=== PATIENT | female | born 1975 | race Caucasian/White ===

== ENCOUNTER 2017-06-30 17:35 | Emergency (ER) | payer MEDICAID ==
[~2017-06-30] VITALS: Ht 165.1 cm; Wt 136.1 kg
[~2017-06-30 17:35] MED LIST: ACHD5005 PO; DOCU100C37 PO; HYDR-757 PO; IBUP-1773 PO; IBUP-1780 PO; LABE200T3 PO; MECL12.579 PO; PEDI1TAB46 PO; PNV91TAB3 PO
--- OUTSIDE RECORDS SUMMARY | 2017-06-30 17:40 | XMS REPORT | Continuity of Care Document ---
Author Author [facility] Organization [facility] Address Unknown Phone Unavailable Allergies Active Description Code Type Severity Reaction Onset Reported/Identified Relationship to Patient Clinical Status Yes No Known Drug Allergies [id number] Drug Allergy Unknown N/A 06/07/2015 Yes latex [id number] Drug Allergy Moderate HIVES, SWELLING 03/22/2016 Medications There is no data. Problems Date Dx Coded Attending Type Code Diagnosis Diagnosed By 04/04/2015 Ot 611.72 04/04/2015 Ot 793.89 04/04/2015 PAVEL SANTILLAN ANIMAL CARE WORKER Ot 611.89 04/04/2015 PAVEL SANTILLAN ANIMAL CARE WORKER Ot V67.9 04/04/2015 PAVEL SANTILLAN ANIMAL CARE WORKER Ot 793.89 04/04/2015 PAVEL SANTILLAN ANIMAL CARE WORKER Ot V16.3 06/07/2015 GORDON SAUCEDO TEST WORKER Ot R10.31 RIGHT LOWER QUADRANT PAIN 06/07/2015 GORDON SAUCEDO TEST WORKER Ot R31.2 OTHER MICROSCOPIC HEMATURIA 06/07/2015 GORDON SAUCEDO TEST WORKER Ot Z87.442 PERSONAL HISTORY OF URINARY CALCULI 06/07/2015 Ot 611.72 06/07/2015 Ot 793.89 06/07/2015 PAVEL SANTILLAN ANIMAL CARE WORKER Ot 611.89 06/07/2015 PAVEL SANTILLAN ANIMAL CARE WORKER Ot V67.9 06/07/2015 PAVEL SANTILLAN ANIMAL CARE WORKER Ot 793.89 06/07/2015 PAVEL SANTILLAN ANIMAL CARE WORKER Ot V16.3 06/07/2015 PAVEL SANTILLAN ANIMAL CARE WORKER Ot Z12.31 06/07/2015 PAVEL SANTILLAN ANIMAL CARE WORKER Ot Z80.3 08/22/2015 RADHIKA SHARMA TEST WORKER Ot Z34.81 08/22/2015 RADHIKA SHARMA TEST WORKER Ot Z36 09/20/2015 Ot 611.72 LUMP OR MASS IN BREAST 09/20/2015 Ot 793.89 OTH (ABN) FINDINGS ON RADIOLOGICAL EXAMI 09/20/2015 TYRELLPAVEL HERRERA ANIMAL CARE WORKER Ot 611.89 OTHER SPECIFIED DISORDERS OF BREAST 09/20/2015 TYRELLPAVEL HERRERA ANIMAL CARE WORKER Ot V67.9 FOLLOW-UP EXAM NOS 09/20/2015 TYRELLPAVEL HERRERA ANIMAL CARE WORKER Ot 793.89 OTH (ABN) FINDINGS ON RADIOLOGICAL EXAMI 09/20/2015 PAVEL SANTILLAN ANIMAL CARE WORKER Ot V16.3 FAMILY HX-BREAST MALIG 09/20/2015 PAVEL SANTILLAN ANIMAL CARE WORKER Ot Z12.31 ENCNTR SCREEN MAMMOGRAM FOR MALIGNANT NE 09/20/2015 PAVEL SANTILLAN ANIMAL CARE WORKER Ot Z80.3 FAMILY HISTORY OF MALIGNANT NEOPLASM OF 09/20/2015 RADHIKA SHARMA TEST WORKER Ot Z34.81 ENCOUNTER FOR SUPRVSN OF NORMAL PREGNANC 09/20/2015 RADHIKA SHARMA TEST WORKER Ot Z36 ENCOUNTER FOR SCREENING OF MOT 09/21/2015 Ot 611.72 LUMP OR MASS IN BREAST 09/21/2015 Ot 793.89 OTH (ABN) FINDINGS ON RADIOLOGICAL EXAMI 09/21/2015 TYRELLPAVEL HERRERA ANIMAL CARE WORKER Ot 611.89 OTHER SPECIFIED DISORDERS OF BREAST 09/21/2015 TYRELLPAVEL HERRERA ANIMAL CARE WORKER Ot V67.9 FOLLOW-UP EXAM NOS 09/21/2015 TYRELLPAVEL HERRERA ANIMAL CARE WORKER Ot 793.89 OTH (ABN) FINDINGS ON RADIOLOGICAL EXAMI 09/21/2015 PAVEL SANTILLAN ANIMAL CARE WORKER Ot V16.3 FAMILY HX-BREAST MALIG 09/21/2015 PAVEL SANTILLAN ANIMAL CARE WORKER Ot Z12.31 ENCNTR SCREEN MAMMOGRAM FOR MALIGNANT NE 09/21/2015 PAVEL SANTILLAN ANIMAL CARE WORKER Ot Z80.3 FAMILY HISTORY OF MALIGNANT NEOPLASM OF 09/21/2015 RADHIKA SHARMA TEST WORKER Ot Z34.81 ENCOUNTER FOR SUPRVSN OF NORMAL PREGNANC 09/21/2015 RADHIKA SHARMA TEST WORKER Ot Z36 ENCOUNTER FOR SCREENING OF MOT 09/22/2015 WHIT ORELLANA MD Ot Z34.81 ENCOUNTER FOR SUPRVSN OF NORMAL PREGNANC 10/03/2015 WHIT ORELLANA MD Ot Z34.81 ENCOUNTER FOR SUPRVSN OF NORMAL PREGNANC 10/07/2015 RADHIKA SHARMA TEST WORKER Ot Z34.81 ENCOUNTER FOR SUPRVSN OF NORMAL PREGNANC 10/07/2015 RADHIKA SHARMA TEST WORKER Ot Z36 ENCOUNTER FOR SCREENING OF MOT 10/16/2015 RADHIKA SHARMA TEST WORKER Ot Z34.81 ENCOUNTER FOR SUPRVSN OF NORMAL PREGNANC 10/16/2015 RADHIKA SHARMA TEST WORKER Ot Z36 ENCOUNTER FOR SCREENING OF MOT 11/29/2015 Ot 611.72 LUMP OR MASS IN BREAST 11/29/2015 Ot 793.89 OTH (ABN) FINDINGS ON RADIOLOGICAL EXAMI 11/29/2015 PAVEL SANTILLAN ANIMAL CARE WORKER Ot 611.89 OTHER SPECIFIED DISORDERS OF BREAST 11/29/2015 PAVEL SANTILLAN ANIMAL CARE WORKER Ot V67.9 FOLLOW-UP EXAM NOS 11/29/2015 PAVEL SANTILLAN ANIMAL CARE WORKER Ot 793.89 OTH (ABN) FINDINGS ON RADIOLOGICAL EXAMI 11/29/2015 PAVEL SANTILLAN ANIMAL CARE WORKER Ot V16.3 FAMILY HX-BREAST MALIG 11/29/2015 PAVEL SANTILLAN ANIMAL CARE WORKER Ot Z12.31 ENCNTR SCREEN MAMMOGRAM FOR MALIGNANT NE 11/29/2015 PAVEL SANTILLAN ANIMAL CARE WORKER Ot Z80.3 FAMILY HISTORY OF MALIGNANT NEOPLASM OF 11/29/2015 RADHIKA SHARMA TEST WORKER Ot Z34.81 ENCOUNTER FOR SUPRVSN OF NORMAL PREGNANC 11/29/2015 RADHIKA SHARMA TEST WORKER Ot Z36 ENCOUNTER FOR SCREENING OF MOT 11/29/2015 WHIT ORELLANA MD Ot Z34.81 ENCOUNTER FOR SUPRVSN OF NORMAL PREGNANC 12/01/2015 WHIT ORELLANA MD Ot Z34.82 ENCOUNTER FOR SUPRVSN OF NORMAL PREGNANC 12/11/2015 WHIT ORELLANA MD Ot Z34.82 ENCOUNTER FOR SUPRVSN OF NORMAL PREGNANC 01/03/2016 WHIT ORELLANA MD Ot K52.9 NONINFECTIVE GASTROENTERITIS AND COLITIS 01/03/2016 WHIT ORELLANA MD Ot O36.8190 DECREASED MOVEMENTS, UNSP TRIMESTE 01/03/2016 WHIT ORELLANA MD Ot O99.63 DISEASES OF THE DIGESTIVE SYSTEM COMPLIC 01/03/2016 WHIT ORELLANA MD, Ot Z3A.28 28 WEEKS GESTATION OF 01/08/2016 WHIT ORELLANA MD Ot K52.9 NONINFECTIVE GASTROENTERITIS AND COLITIS 01/08/2016 WHIT ORELLANA MD, Ot O36.8190 DECREASED MOVEMENTS, UNSP TRIMESTE 01/08/2016 WHIT ORELLANA MD, Ot O99.63 DISEASES OF THE DIGESTIVE SYSTEM COMPLIC 01/08/2016 WHIT ORELLANA MD, Ot Z3A.28 28 WEEKS GESTATION OF 01/18/2016 Ot 611.72 LUMP OR MASS IN BREAST 01/18/2016 Ot 793.89 OTH (ABN) FINDINGS ON RADIOLOGICAL EXAMI 01/18/2016 PAVEL SANTILLAN ANIMAL CARE WORKER Ot 611.89 OTHER SPECIFIED DISORDERS OF BREAST 01/18/2016 PAVEL SANTILLAN ANIMAL CARE WORKER Ot V67.9 FOLLOW-UP EXAM NOS 01/18/2016 PAVEL SANTILLAN ANIMAL CARE WORKER Ot 793.89 OTH (ABN) FINDINGS ON RADIOLOGICAL EXAMI 01/18/2016 PAVEL SANTILLAN ANIMAL CARE WORKER Ot V16.3 FAMILY HX-BREAST MALIG 01/18/2016 PAVEL SANTILLANP Ot Z12.31 ENCNTR SCREEN MAMMOGRAM FOR MALIGNANT NE 01/18/2016 PAVEL SANTILLAN ANIMAL CARE WORKER Ot Z80.3 FAMILY HISTORY OF MALIGNANT NEOPLASM OF 01/18/2016 RADHIKA SHARMA APRN Ot Z34.81 ENCOUNTER FOR SUPRVSN OF NORMAL PREGNANC 01/18/2016 RADHIKA SHARMA APRN Ot Z36 ENCOUNTER FOR SCREENING OF MOT 01/18/2016 WHIT ORELLANA MD Ot Z34.81 ENCOUNTER FOR SUPRVSN OF NORMAL PREGNANC 01/18/2016 WHIT ORELLANA MD Ot Z34.82 ENCOUNTER FOR SUPRVSN OF NORMAL PREGNANC 01/22/2016 WHIT ORELLANA MD Ot Z34.83 ENCOUNTER FOR SUPRVSN OF NORMAL PREGNANC 01/22/2016 WHIT ORELLANA MD, Ot Z36 ENCOUNTER FOR SCREENING OF MOT 01/22/2016 WHIT ORELLANA MD, Ot Z3A.28 28 WEEKS GESTATION OF 01/31/2016 Ot 611.72 LUMP OR MASS IN BREAST 01/31/2016 Ot 793.89 OTH (ABN) FINDINGS ON RADIOLOGICAL EXAMI 01/31/2016 PAVEL SANTILLAN ANIMAL CARE WORKER Ot 611.89 OTHER SPECIFIED DISORDERS OF BREAST 01/31/2016 PAVEL SANTILLAN ANIMAL CARE WORKER Ot V67.9 FOLLOW-UP EXAM NOS 01/31/2016 PAVEL SANTILLAN ANIMAL CARE WORKER Ot 793.89 OTH (ABN) FINDINGS ON RADIOLOGICAL EXAMI 01/31/2016 PAVEL SANTILLAN ANIMAL CARE WORKER Ot V16.3 FAMILY HX-BREAST MALIG 01/31/2016 PAVEL SANTILLAN ANIMAL CARE WORKER Ot Z12.31 ENCNTR SCREEN MAMMOGRAM FOR MALIGNANT NE 01/31/2016 PAVEL SANTILLAN ANIMAL CARE WORKER Ot Z80.3 FAMILY HISTORY OF MALIGNANT NEOPLASM OF 01/31/2016 RADHIKA SHARMA APRN Ot Z34.81 ENCOUNTER FOR SUPRVSN OF NORMAL PREGNANC 01/31/2016 RADHIKA SHARMA APRN Ot Z36 ENCOUNTER FOR SCREENING OF MOT 01/31/2016 WHIT ORELLANA MD Ot Z34.81 ENCOUNTER FOR SUPRVSN OF NORMAL PREGNANC 01/31/2016 WHIT ORELLANA MD Ot Z34.82 ENCOUNTER FOR SUPRVSN OF NORMAL PREGNANC 01/31/2016 WHIT ORELLANA MD, Ot Z34.83 ENCOUNTER FOR SUPRVSN OF NORMAL PREGNANC 01/31/2016 WHIT ORELLANA MD Ot Z36 ENCOUNTER FOR SCREENING OF MOT 01/31/2016 WHIT ORELLANA MD, Ot Z3A.28 28 WEEKS GESTATION OF 02/13/2016 WHIT ORELLANA MD, Ot Z34.83 ENCOUNTER FOR SUPRVSN OF NORMAL PREGNANC 02/13/2016 WHIT ORELLANA MD, Ot Z36 ENCOUNTER FOR SCREENING OF MOT 02/13/2016 WHIT ORELLANA MD, Ot Z3A.28 28 WEEKS GESTATION OF 03/22/2016 Ot 611.72 LUMP OR MASS IN BREAST 03/22/2016 Ot 793.89 OTH (ABN) FINDINGS ON RADIOLOGICAL EXAMI 03/22/2016 PAVEL SANTILLAN ANIMAL CARE WORKER Ot 611.89 OTHER SPECIFIED DISORDERS OF BREAST 03/22/2016 PAVEL SANTILLANP Ot V67.9 FOLLOW-UP EXAM NOS 03/22/2016 PAVEL SANTILLANP Ot 793.89 OTH (ABN) FINDINGS ON RADIOLOGICAL EXAMI 03/22/2016 PAVEL SANTILLAN ANIMAL CARE WORKER Ot V16.3 FAMILY HX-BREAST MALIG 03/22/2016 PAVEL SANTILLANP Ot Z12.31 ENCNTR SCREEN MAMMOGRAM FOR MALIGNANT NE 03/22/2016 PAVEL SANTILLAN ANIMAL CARE WORKER Ot Z80.3 FAMILY HISTORY OF MALIGNANT NEOPLASM OF 03/22/2016 RADHIKA SHARMA TEST WORKER Ot Z34.81 ENCOUNTER FOR SUPRVSN OF NORMAL PREGNANC 03/22/2016 RADHIKA SHARMA TEST WORKER Ot Z36 ENCOUNTER FOR SCREENING OF MOT 03/22/2016 WHIT ORELLANA MD Ot Z34.81 ENCOUNTER FOR SUPRVSN OF NORMAL PREGNANC 03/22/2016 WHIT ORELLANA MD Ot Z34.82 ENCOUNTER FOR SUPRVSN OF NORMAL PREGNANC 03/22/2016 WHIT ORELLANA MD Ot Z34.83 ENCOUNTER FOR SUPRVSN OF NORMAL PREGNANC 03/22/2016 WHIT ORELLANA MD Ot Z36 ENCOUNTER FOR SCREENING OF MOT 03/22/2016 WHIT ORELLANA MD Ot Z3A.28 28 WEEKS GESTATION OF 03/22/2016 Ot 611.72 LUMP OR MASS IN BREAST 03/22/2016 Ot 793.89 OTH (ABN) FINDINGS ON RADIOLOGICAL EXAMI 03/22/2016 PAVEL SANTILLAN ANIMAL CARE WORKER Ot 611.89 OTHER SPECIFIED DISORDERS OF BREAST 03/22/2016 PAVEL SANTILLANP Ot V67.9 FOLLOW-UP EXAM NOS 03/22/2016 PAVEL SANTILLANP Ot 793.89 OTH (ABN) FINDINGS ON RADIOLOGICAL EXAMI 03/22/2016 PAVEL SANTILLAN ANIMAL CARE WORKER Ot V16.3 FAMILY HX-BREAST MALIG 03/22/2016 PAVEL SANTILLAN ANIMAL CARE WORKER Ot Z12.31 ENCNTR SCREEN MAMMOGRAM FOR MALIGNANT NE 03/22/2016 PAVEL SANTILLAN Ot Z80.3 FAMILY HISTORY OF MALIGNANT NEOPLASM OF 03/22/2016 RADHIKA SHARMA APRN Ot Z34.81 ENCOUNTER FOR SUPRVSN OF NORMAL PREGNANC 03/22/2016 RADHIKA SHARMA APRN Ot Z36 ENCOUNTER FOR SCREENING OF MOT 03/22/2016 WHIT ORELALNA MD, Ot Z34.81 ENCOUNTER FOR SUPRVSN OF NORMAL PREGNANC 03/22/2016 WHIT ORELLANA MD, Ot Z34.82 ENCOUNTER FOR SUPRVSN OF NORMAL PREGNANC 03/22/2016 WHIT ORELLANA MD, Ot Z34.83 ENCOUNTER FOR SUPRVSN OF NORMAL PREGNANC 03/22/2016 WHIT ORELLANA MD, Ot Z36 ENCOUNTER FOR SCREENING OF MOT 03/22/2016 WHIT ORELLANA MD, Ot Z3A.28 28 WEEKS GESTATION OF 03/25/2016 EDWIGE ROJO DO, Ot O34.219 MATERNAL CARE FOR UNSP TYPE SCAR FROM VA 03/25/2016 EDWIGE ROJO DO, Ot Z01.818 ENCOUNTER FOR OTHER PREPROCEDURAL EXAMIN 03/25/2016 EDWIGE ROJO DO, Ot Z11.2 ENCOUNTER FOR SCREENING FOR OTHER BACTER 03/25/2016 EDWIGE ROJO DO, Ot Z3A.00 WEEKS OF GESTATION OF NOT SPEC 03/30/2016 EDWIGE ROJO DO, Ot O09.523 SUPERVISION OF ELDERLY MULTIGRAVIDA, THI 03/30/2016 EDWIGE ROJO DO, Ot O13.4 GESTATNL HTN WITHOUT SIGNIFICANT PROTEIN 03/30/2016 EDWIGE ROJO DO, Ot O34.211 MATERN CARE FOR LOW TRANSVERSE SCAR FROM 03/30/2016 EDWIGE ROJO DO, Ot Z23 ENCOUNTER FOR IMMUNIZATION 03/30/2016 EDWIGE ROJO DO, Ot Z37.0 SINGLE LIVE 03/30/2016 EDWIGE ROJO DO, Ot Z3A.39 39 WEEKS GESTATION OF Procedures Code Description Performed By Performed On [id number] EXTRACTION OF POC, LOW CERVICAL, OPEN AP 03/28/2016 Results Test Result Range Methicillin resistant Staphylococcus aureus (MRSA) screening culture - 11:30 Methicillin resistant Staphylococcus aureus (MRSA) screening culture NEG NRG Complete blood count (CBC) with automated white blood cell (WBC) differential - 03/28/16 06:10 Blood leukocytes automated count (number/volume) 8.6 10*3/uL 4.3-11.0 Blood erythrocytes automated count (number/volume) 4.25 10*6/uL 4.35-5.85 Venous blood hemoglobin measurement (mass/volume) 12.9 g/dL 11.5-16.0 Blood hematocrit (volume fraction) 39 % 35-52 Automated erythrocyte mean corpuscular volume 91 [foz_us] 80-99 Automated erythrocyte mean corpuscular hemoglobin (mass per erythrocyte) 30 pg 25-34 Automated erythrocyte mean corpuscular hemoglobin concentration measurement ( mass/volume) 33 g/dL 32-36 Automated erythrocyte distribution width ratio 16.5 % 10.0-14.5 Automated blood platelet count (count/volume) 167 10*3/uL 130-400 Automated blood platelet mean volume measurement 11.9 [foz_us] 7.4-10.4 Automated blood neutrophils/100 leukocytes 64 % 42-75 Automated blood lymphocytes/100 leukocytes 26 % 12-44 Blood monocytes/100 leukocytes 8 % 0-12 Automated blood eosinophils/100 leukocytes 2 % 0-10 Automated blood basophils/100 leukocytes 0 % 0-10 Blood neutrophils automated count (number/volume) 5.5 10*3 1.8-7.8 Blood lymphocytes automated count (number/volume) 2.2 10*3 1.0-4.0 Blood monocytes automated count (number/volume) 0.7 10*3 0.0-1.0 Automated eosinophil count 0.2 10*3/uL 0.0-0.3 Automated blood basophil count (count/volume) 0.0 10*3/uL 0.0-0.1 Blood type T Indirect antibody screen panel - 03/28/16 06:10 ABO+Rh group OP NRG Transfusion band number [id number] [facility] Blood group antibody screen NEGATIVE [facility] Complete blood count (CBC) with automated white blood cell (WBC) differential - 03/29/16 05:53 Blood leukocytes automated count (number/volume) 10.9 10*3/uL 4.3-11.0 Blood erythrocytes automated count (number/volume) 3.67 10*6/uL 4.35-5.85 Venous blood hemoglobin measurement (mass/volume) 11.2 g/dL 11.5-16.0 Blood hematocrit (volume fraction) 34 % 35-52 Automated erythrocyte mean corpuscular volume 92 [foz_us] 80-99 Automated erythrocyte mean corpuscular hemoglobin (mass per erythrocyte) 31 pg 25-34 Automated erythrocyte mean corpuscular hemoglobin concentration measurement ( mass/volume) 33 g/dL 32-36 Automated erythrocyte distribution width ratio 16.4 % 10.0-14.5 Automated blood platelet count (count/volume) 135 10*3/uL 130-400 Automated blood platelet mean volume measurement 11.6 [foz_us] 7.4-10.4 Automated blood neutrophils/100 leukocytes 65 % 42-75 Automated blood lymphocytes/100 leukocytes 27 % 12-44 Blood monocytes/100 leukocytes 8 % 0-12 Automated blood eosinophils/100 leukocytes 1 % 0-10 Automated blood basophils/100 leukocytes 0 % 0-10 Blood neutrophils automated count (number/volume) 7.1 10*3 1.8-7.8 Blood lymphocytes automated count (number/volume) 2.9 10*3 1.0-4.0 Blood monocytes automated count (number/volume) 0.8 10*3 0.0-1.0 Automated eosinophil count 0.1 10*3/uL 0.0-0.3 Automated blood basophil count (count/volume) 0.0 10*3/uL 0.0-0.1 Encounters ACCT No. Visit Date/Time Discharge Status Pt. Type Provider Facility Loc./Unit Complaint [id number] 03/28/2016 05:53:00 03/30/2016 10:10:00 DIS Inpatient EDWIGE ROJO DO S [facility] WS PREVIOUS SECTION [id number] 03/22/2016 10:50:00 03/22/2016 23:59:59 CLS Outpatient EDWIGE ROJO DO [facility] PREOP PREVIOUS SECTION [id number] 01/18/2016 13:12:00 01/18/2016 23:59:59 CLS Outpatient WHIT ORELLANA MD [facility] RAD 28 WEEKS OF GESTATION OF [id number] 01/03/2016 09:08:00 01/03/2016 10:30:00 DIS Outpatient WHIT ORELLANA MD [facility] WSo NAUSEA,VOMITTING, DECREASED MOVEMENT [id number] 11/29/2015 14:28:00 11/29/2015 23:59:59 CLS Outpatient WHIT ORELLANA MD [facility] RAD PRE-PREM CARE, SUBSEQUENT 2ND TRIMESTER [id number] 09/20/2015 14:49:00 09/20/2015 23:59:59 CLS Outpatient WHIT ORELLANA MD [facility] RAD UNABLE TO HEAR HEART TONES [id number] 08/22/2015 15:12:00 08/22/2015 23:59:59 CLS Outpatient RADHIKA SHARMA APRN [facility] RAD CARE [id number] 06/07/2015 10:59:00 06/07/2015 13:35:00 DIS Emergency GORDON SAUCEDO APRN [facility] ER LOWER RIGHT SIDE ABD PAIN [id number] 04/04/2015 11:13:00 04/04/2015 23:59:59 CLS Outpatient PAVEL SANTILLAN ANIMAL CARE WORKER [facility] RAD SCREENING [id number] 04/05/2014 14:35:00 04/05/2014 23:59:59 CLS Outpatient [id number] 01/17/2014 08:15:00 01/17/2014 23:59:59 CLS Outpatient PAVEL SANTILLANP [facility] RAD BILATERAL BREAST CALCIFACTIONS [id number] 12/08/2012 13:39:00 12/08/2012 23:59:59 CLS Outpatient PAVEL SANTILLAN ANIMAL CARE WORKER [facility] RAD SIX MONTH FOLLOW-UP [id number] 06/30/2017 17:36:00 ACT Emergency KEITH TORRES DO [facility] ER FLU SYMPTOMS [id number] 05/13/2012 13:02:00 Document Registration
--- NOTE | 2017-06-30 19:13 | ED Cough/URI ---
General Chief Complaint: Cough/Cold/Flu Symptoms Stated Complaint: FLU SYMPTOMS Nursing Triage Note: pt reports cough/sore throat/ low grade fever since friday. Source: patient Exam Limitations: no limitations History of Present Illness Date Seen by Provider: Jun 30, 2017 Time Seen by Provider: 18:45 Initial Comments Here with report of cough, sore throat and low-grade fever for the last 5 days although is getting better now. Patient has child with similar. Denies nausea or vomiting. Denies breathing problems or weakness. Timing/Duration: changing over time Severity/Quality: moderate, dry cough Associated Symptoms: cough, fever/chills, nasal congestion, nasal drainage, sore throat Allergies and Home Medications Allergies Coded Allergies: latex (Verified Allergy, Intermediate, HIVES, SWELLING, 03/22/16) Home Medications Docusate Sodium 100 Mg Capsule, 100 MG PO BID PRN for CONSTIPATION, #40 Prescribed by: EDWIGE ROJO on 03/29/16 0842 Hydrocodone Bit/Acetaminophen 1 Each Tablet, 1-2 TAB PO Q4H PRN for PAIN, #50 Prescribed by: EDWIGE ROJO on 03/29/16 0842 Ibuprofen 600 Mg Tablet, 600 MG PO Q6H, #80 Prescribed by: EDWIGE ROJO on 03/29/16 0842 Labetalol HCl 200 Mg Tablet, 200 MG PO BID, #60 Prescribed by: EDWIGE ROJO on 03/30/16 0857 Meclizine HCl 12.5 Mg Tablet, 12.5 MG PO PRN, (Reported) Pediatric Multivit Comb No.76 1 Each Tab.chew, 1 EACH PO DAILY, (Reported) Constitutional: see HPI, fever, No weakness EENTM: nose congestion, nose pain, throat pain Respiratory: cough, No short of breath Cardiovascular: no symptoms reported Gastrointestinal: no symptoms reported Genitourinary: no symptoms reported Musculoskeletal: no symptoms reported Skin: no symptoms reported All Other Systems Reviewed Negative Unless Noted: Yes Past Hasmmtn-Fqzrqg-Jennih Hx Patient Social History Alcohol Use: Denies Use Recreational Drug Use: No Smoking Status: Former Smoker Type Used: Cigarettes Former Smoker, Quit: Jun 22, 2015 Recent Foreign Travel: No Contact w/Someone Who Travel: No Recent Infectious Disease Expo: No Recent Hopitalizations: No Immunizations Up To Date Tetanus Booster (TDap): Less than 5yrs Date of Influenza Vaccine: Jan 25, 2016 Seasonal Allergies Seasonal Allergies: Yes Surgeries History of Surgeries: Yes (breast surgery, lumpectomy) Surgeries: Section Respiratory History of Respiratory Disorde: No Cardiovascular History of Cardiac Disorders: Yes (GESTATIONAL HPT) Cardiac Disorders: Hypertension Neurological History of Neurological Disord: No Reproductive System Hx Reproductive Disorders: No Sexually Transmitted Disease: No HIV/AIDS: No Female Reproductive Disorders: Denies Genitourinary Genitourinary Disorders: Kidney Stones Gastrointestinal History of Gastrointestinal Di: Yes Gastrointestinal Disorders: Gastroesophageal Reflux Musculoskeletal History of Musculoskeletal Dis: No Endocrine History of Endocrine Disorders: No HEENT Loss of Vision: Bilateral Hearing Impairment: Denies Cancer History of Cancer: Yes Cancer: Breast Psychosocial History of Psychiatric Problem: Yes Behavioral Health Disorders: Depression Integumentary History of Skin or Integumenta: No Blood Transfusions History of Blood Disorders: No Adverse Reaction to a Blood Tr: No (N/A) Reviewed Nursing Assessment Reviewed/Agree w Nursing PMH: Yes Family Medical History Significant Family History: No Pertinent Family Hx Family Medial History: Alcoholism 19 FATHER Hypertension 19 FATHER Physical Exam Vital Signs Vital Sign - Last 12Hours 06/30/17 18:23 Temp 98.2 Pulse 106 Resp 18 B/P (MAP) 156/80 (105) Pulse Ox 95 Capillary Refill : Less Than 3 Seconds General Appearance: WD/WN, no apparent distress HEENT: PERRL/EOMI, pharyngeal erythema, other (bilateral nasal congestion with clear rhinorrhea and moderate erythema) Neck: full range of motion, supple Respiratory: lungs clear, normal breath sounds Cardiovascular: regular rate, rhythm Gastrointestinal: non tender, soft Neurologic/Psychiatric: alert, oriented x 3 Skin: normal color, warm/dry Progress/Results/Core Measures Suspected Sepsis Recent Fever Within 48 Hours: Yes Infection Criteria Present: None New/Unexplained Altered Menta: No Sepsis Screen: No Definite Risk Sepsis Diagnosis: SIRS Temperature:98.2 Pulse: 106 Respiratory Rate: 18 Blood Pressure 156 /80 Mean: 105 Results/Orders Lab Results Laboratory Tests Test 06/30/17 18:41 Range/Units Group A Streptococcus Screen NEGATIVE NEGATIVE Micro Results Microbiology 06/30/17 Influenza Types A,B Antigen (PARISH) - Final, Complete My Orders Orders - ALEK ROBLES MD Rapid Strep A Screen (06/30/17 18:41) Vital Signs/I&O Vital Sign - Last 12Hours 06/30/17 18:23 Temp 98.2 Pulse 106 Resp 18 B/P (MAP) 156/80 (105) Pulse Ox 95 Capillary Refill : Less Than 3 Seconds Blood Pressure Mean: 105 Progress Note : Progress Note Seen and evaluated. Influenza and rapid strep ordered. Both were negative. Patient is likely on the improving side of upper respiratory infection this was discussed with the patient. No further therapy at this time other than supportive care. Discharged home with return precautions. Patient verbalize understanding of instructions and agreement with plan. Departure Impression Impression: Primary Impression: Upper respiratory infection Qualified Codes: J06.9 - Acute upper respiratory infection, unspecified Disposition: HOME, SELF-CARE Condition: Stable Departure-Patient Inst. Decision time for Depature: 20:03 Referrals: [facility] ([place]/Family) Primary Care Physician Patient Instructions: Viral Upper Respiratory Infection, Adult (DC) Add. Discharge Instructions: All discharge instructions reviewed with patient and/or family. Voiced understanding. You may take ibuprofen 800 mg and/or Tylenol 1000 mg as needed for fever or pain control alternating every 8 hours. Drink plenty of fluids. Follow-up with your Dr. in a few days for recheck. You may use Afrin nasal spray or the generic, 12 hour relief, 2 sprays to each nostril twice daily for 3 days only and then stop. Do not use more than 3 days. Return for worse pain, fever, vomiting, weakness, breathing problems or other concerns as needed. ALEK ROBLES MD Jun 30, 2017 19:13
[2017-06-30 20:50] VITALS: BP 152/72
== END 2017-06-30 20:50 | disposition home or self-care (01) ==
LOC: EDUNIT# 17:35 → ER 17:36
DX: J06.9 Acute upper respiratory infection, unspecified (principal); F32.9 Major depressive disorder, single episode, unspecified; K21.9 Gastro-esophageal reflux disease without esophagitis; I10 Essential (primary) hypertension; Z87.59 Personal history of other complications of pregnancy, childbirth and the puerperium; Z87.442 Personal history of urinary calculi; Z85.3 Personal history of malignant neoplasm of breast; Z87.891 Personal history of nicotine dependence; Z91.040 Latex allergy status
CPT/HCPCS: 87430; 87804; 99282

== ENCOUNTER 2019-04-06 12:56 | Emergency (ER) | payer BC, MEDICAID ==
[~2019-04-06] VITALS: Ht 170.6 cm; Wt 128.3 kg
[~2019-04-06 12:56] MED LIST changes: +HYDR-4226 PO; -HYDR-757 PO; -LABE200T3 PO; +LABE200T7 PO
--- NOTE | 2019-04-06 14:34 | ED Lower Extremity ---
General Chief Complaint: Lower Extremity Stated Complaint: R KNEE PAIN Nursing Triage Note: seen at [facility] YESTERDAY FOR RIGHT KNEE PAIN, HAD STEROID INJECTION, FELT BETTER. THIS AM STEPPED WRONG AND FELT A POP, NOW UNABLE TO MAINTAIN WEIGHT WITHOUT EXTREME PAIN. FOLLOWING UP WITH DR MATHUR FOR POTENTIAL RHEUMATOID ARTHRITIS. Nursing Sepsis Screen: No Definite Risk Source: patient Exam Limitations: no limitations History of Present Illness Date Seen by Provider: Apr 06, 2019 Time Seen by Provider: 14:32 Initial Comments To ER with reports of ongoing right knee pain. She was seen by [facility] yesterday, given a shot of steroids had x-rays done, steroids to help him initially with her pain, she is scheduled to follow-up with Dr. Deepak Mathur in the upcoming week or 2. She states that she stepped down just wrong today and felt a popping sensation with increased pain to the right knee. Onset: yesterday Severity: moderate Pain/Injury Location: right knee Method of Injury: unknown Modifying Factors: Worse With Movement Allergies and Home Medications Allergies Coded Allergies: latex (Verified Allergy, Intermediate, HIVES, SWELLING, 03/22/16) Home Medications Docusate Sodium 100 Mg Capsule, 100 MG PO BID PRN for CONSTIPATION Prescribed by: EDWIGE ROJO on 03/29/16 0842 Hydrocodone Bit/Acetaminophen 1 Each Tablet, 1-2 TAB PO Q4H PRN for PAIN Prescribed by: EDWIGE ROJO on 03/29/16 0842 Ibuprofen 600 Mg Tablet, 600 MG PO Q6H Prescribed by: EDWIGE ROJO on 03/29/16 0842 Labetalol HCl 200 Mg Tablet, 200 MG PO BID Prescribed by: EDWIGE ROJO on 03/30/16 0857 Meclizine HCl 12.5 Mg Tablet, 12.5 MG PO PRN, (Reported) Pediatric Multivit Comb No.76 1 Each Tab.chew, 1 EACH PO DAILY, (Reported) Patient Home Medication List Home Medication List Reviewed: Yes Review of Systems Constitutional: see HPI EENTM: see HPI Respiratory: no symptoms reported Cardiovascular: no symptoms reported Genitourinary: no symptoms reported Musculoskeletal: see HPI Skin: no symptoms reported Psychiatric/Neurological: No Symptoms Reported Past Zgcnbke-Eprqdi-Wxjdrz Hx Patient Social History Type Used: Cigarettes Former Smoker, Quit: Jun 22, 2015 Recent Foreign Travel: No Contact w/Someone Who Travel: No Recent Infectious Disease Expo: No Recent Hopitalizations: No Immunizations Up To Date Tetanus Booster (TDap): Less than 5yrs Date of Influenza Vaccine: Jan 25, 2016 Seasonal Allergies Seasonal Allergies: Yes Past Medical History Surgeries: Yes (breast surgery, lumpectomy) Section Respiratory: No Cardiac: Yes (GESTATIONAL HPT) Hypertension Neurological: No : No Last Menstrual Period: Mar 10, 2019 Reproductive Disorders: No Female Reproductive Disorders: Denies Sexually Transmitted Disease: No HIV/AIDS: No Kidney Stones Gastrointestinal: Yes Gastroesophageal Reflux Musculoskeletal: No Endocrine: No Loss of Vision: Bilateral Hearing Impairment: Denies Cancer: Yes Breast Psychosocial: Yes Depression Integumentary: No Blood Disorders: No Adverse Reaction/Blood Tranf: No (N/A) Family Medical History Alcoholism 19 FATHER Hypertension 19 FATHER No Pertinent Family Hx Physical Exam Vital Signs Vital Signs - First Documented 04/06/19 13:08 Temp 36.8 Pulse 86 Resp 20 B/P (MAP) 150/94 (112) Pulse Ox 98 Capillary Refill : Less Than 3 Seconds Height, Weight, BMI Height: 5'5.00" Weight: 300lbs. 4.0oz. 136.233236eg; 44.00 BMI Method:Stated General Appearance: WD/WN, no apparent distress, obese Neck: non-tender, full range of motion Respiratory: no respiratory distress, no accessory muscle use Hips: bilateral hip non-tender, bilateral hip normal inspection, bilateral hip normal range of motion Legs: bilateral leg non-tender, bilateral leg normal inspection, bilateral leg normal range of motion Knees: right knee pain, right knee soft tissue tenderness, right knee other (no erythema no ecchymosis is no palpable effusion) Ankles: bilateral ankle non-tender, bilateral ankle normal inspection, bilateral ankle normal range of motion Feet: bilateral foot non-tender, bilateral foot normal inspection, bilateral foot normal range of motion Neurologic/Psychiatric: alert, normal mood/affect, oriented x 3 Skin: normal color, warm/dry Progress/Results/Core Measures Results/Orders Vital Signs/I&O 04/06/19 13:08 Temp 36.8 Pulse 86 Resp 20 B/P (MAP) 150/94 (112) Pulse Ox 98 Blood Pressure Mean: 112 POS Departure Impression Primary Impression: Internal derangement of right knee Disposition: 01 HOME, SELF-CARE Condition: Stable Departure-Patient Inst. Decision time for Depature: 14:37 Referrals: [facility] (PCP/Family) Primary Care Physician Patient Instructions: Internal Derangement of the Knee Add. Discharge Instructions: 1. Return to ER for any concerns 2. Follow-up with your doctor next week 3. All discharge instructions reviewed with patient and/or family. Voiced understanding. Scripts Meloxicam (Meloxicam) 7.5 Mg Tablet 7.5 MG PO DAILY, #30 TAB Prov: GORDON SAUCEDO APRN 04/06/19 Copy Copies To 1: DEEPAK MATHUR MD, PETER J APRN Apr 06, 2019 14:34 POS
[2019-04-06] MEDS ORDERED: MELO7.5T46 PO (14:39)
[2019-04-06 14:45] VITALS: BP 150/94
== END 2019-04-06 14:45 | disposition home or self-care (01) ==
LOC: EDUNIT# 12:56 → ER 12:57
DX: M23.91 Unspecified internal derangement of right knee (principal); I10 Essential (primary) hypertension; K21.9 Gastro-esophageal reflux disease without esophagitis; F32.9 Major depressive disorder, single episode, unspecified; Z85.3 Personal history of malignant neoplasm of breast; Z87.442 Personal history of urinary calculi; Z91.040 Latex allergy status; Z87.891 Personal history of nicotine dependence; Z82.49 Family history of ischemic heart disease and other diseases of the circulatory system; X50.1XXA Overexertion from prolonged static or awkward postures, initial encounter

== ENCOUNTER → 2019-04-16 | Outpatient (CLI) | payer BC ==
[~2019-04-16] MED LIST changes: +MELO7.5T46 PO
--- NOTE | 2019-04-16 09:31 | Diagnostic Imaging Report ---
MRI RT LOWER EXT JOINT W/O TECHNIQUE: Multiplanar, multisequence MR imaging of the right knee was performed without contrast. COMPARISON: None available. INDICATION: Right knee pain. FINDINGS: MENISCI Medial meniscus: Incomplete radial tear at the posterior root insertional fibers of the medial meniscus. The body of the medial meniscus is partially extruded into the medial gutter. Lateral meniscus: Normal. LIGAMENTS ACL: Intact. PCL: Intact. MCL: Intact. LCL: The lateral collateral ligamentous complex is intact. EXTENSOR MECHANISM The extensor mechanism is intact. CARTILAGE Medial compartment: Medial compartment articular cartilage is well preserved without focal high-grade chondromalacia. Lateral compartment: The lateral compartment articular cartilage is preserved without high-grade chondromalacia. Patellofemoral compartment: Focal full thickness chondral fissuring in the lateral patellar facet with underlying subchondral cystic change. BONE No fracture, stress fracture or osteonecrosis. SOFT TISSUE No knee effusion or Mccain's cyst. IMPRESSION: 1. Incomplete free edge radial tear in the posterior horn of the medial meniscus near its root insertion. 2. 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 Remainder of the articular cartilage throughout the knee is preserved. 3. The cruciate and collateral ligaments are normal. Dictated by: Dictated on workstation # [id number]
== END ==
LOC: RAD 07:50
PROVIDERS: ATTEND Nurse Practitioner Family
DX: S83.241A Other tear of medial meniscus, current injury, right knee, initial encounter (principal); M23.91 Unspecified internal derangement of right knee; M22.41 Chondromalacia patellae, right knee; M17.11 Unilateral primary osteoarthritis, right knee
CPT/HCPCS: 73721

== ENCOUNTER 2022-05-18 08:52 | Emergency (ER) | payer BC ==
[~2022-05-18] VITALS: Ht 167.7 cm; Wt 135.2 kg
[~2022-05-18 08:52] MED LIST changes: +LABE200T10 PO; -LABE200T7 PO; +MECL-215 PO; -MECL12.579 PO
[2022-05-18] MEDS ORDERED: ACHD5005 PO (10:12)
[2022-05-18] MEDS ORDERED: AMOX1TAB12 PO (10:12)
--- NOTE | 2022-05-18 10:12 | ED EENT ---
History of Present Illness General Chief Complaint: Dental Problems/Pain Stated Complaint: DENTAL PAIN Nursing Triage Note: PT AMBULATE TO ROOM FT1 WITHOUT DIFFICULTY WITH C/O LEFT UPPER DENTAL PAIN X2 DAYS. PT REPORTS SHE ATTEMPTED TO GO TO [facility] AND THEY HAVE BEEN CLOSE DUE TO THE WEATHER AND ARE CLOSED TODAY FOR THE HOLIDAY. SWELLING NOTED TO LEFT FACE. Source: patient Exam Limitations: no limitations History of Present Illness Date Seen by Provider: May 18, 2022 Time Seen by Provider: 10:00 Initial Comments Here with for facial swelling over the last couple of days. She tried to go to the clinic but it was closed due to weather and try to go to the dental clinic which was closed for the same thing. There is no increase in swelling to the left side of face. She is previously on Augmentin which helped. She knows that she needs to see the dentist. Denies fever, swallowing problems or breathing problems. Timing/Duration: gradual Severity: moderate Location: facial, dental Prearrival Treatment: over the counter meds Associated Symptoms: No cough, No drooling; facial pain/swelling; No fever, No nasal congestion/drainage, No sinus infection; tooth pain Allergies and Home Medications Allergies Coded Allergies: latex (Verified Allergy, Intermediate, HIVES, SWELLING, 03/22/16) Patient Home Medication List Home Medication List Reviewed: Yes Amoxicillin/Potassium Clav (Amox Tr-K Clv 875-125 mg Tab) 875 Mg-125 Mg Tablet, 1 EACH PO BID Prescribed by: ALEK ROBLES on 05/18/22 1012 Docusate Sodium (Docusate Sodium) 100 Mg Capsule, 100 MG PO BID PRN for CONSTIPATION Prescribed by: EDWIGE ROJO on 03/29/16 0842 Hydrocodone Bit/Acetaminophen (Lortab 5 Mg Tablet) 1 Each Tablet, 1-2 TAB PO Q4H PRN for PAIN Prescribed by: EDWIGE ROJO on 03/29/16 0842 Hydrocodone Bit/Acetaminophen (HYDROcodone/APAP 5 MG/325 MG TAB) 1 Tab Tab, 1 TAB PO Q6H Prescribed by: ALEK ROBLES on 05/18/22 1012 Ibuprofen (Ibuprofen) 600 Mg Tablet, 600 MG PO Q6H Prescribed by: EDWIGE ROJO on 03/29/16 0842 Labetalol HCl (Labetalol HCl) 200 Mg Tablet, 200 MG PO BID Prescribed by: EDWIGE ROJO on 03/30/16 0857 Meclizine HCl (Meclizine HCl) 12.5 Mg Tablet, 12.5 MG PO PRN, (Reported) Entered as Reported by: ALTA JUDD on 03/22/16 1113 Meloxicam (Meloxicam) 7.5 Mg Tablet, 7.5 MG PO DAILY Prescribed by: GORDON SAUCEDO on 04/06/19 1439 Pediatric Multivit Comb No.76 (Flintstones Complete) 1 Each Tab.chew, 1 EACH PO DAILY, (Reported) Entered as Reported by: ALTA JUDD on 03/22/16 1113 Review of Systems Review of Systems Constitutional: see HPI; No chills, No fever Eyes: No Symptoms Reported Ears: No Symptoms Reported Nose: no symptoms reported Mouth: see HPI, pain, swelling Throat: denies hoarse, denies aphonia, denies muffled, denies painful swallowing, denies difficulty with fluids Respiratory: No cough, No short of breath Cardiovascular: no symptoms reported Gastrointestinal: No nausea, No vomiting Skin: change in color; No lesions Past Onwblql-Myytfv-Nntdka Hx Patient Social History Tobacco Use?: No Smoking Status: Never a Smoker Smokeless Tobacco Frequency: Never a User Use of E-Cig and/or Vaping dev: No Use of E-Cig and/or Vaping Amaury: Never a User Substance use?: No Alcohol Use?: No Pt feels they are or have been: No Immunizations Up To Date Tetanus Booster (TDap): Less than 5yrs COVID19 Vaccine Hvac Mechanic: MODERNA Seasonal Allergies Seasonal Allergies: Yes Past Medical History Surgeries: Yes (breast surgery, lumpectomy) Section Respiratory: No Cardiac: Yes (GESTATIONAL HPT) Hypertension Neurological: No Reproductive Disorders: No Female Reproductive Disorders: Denies Sexually Transmitted Disease: No HIV/AIDS: No Kidney Stones Gastrointestinal: Yes Gastroesophageal Reflux Musculoskeletal: No Endocrine: No Loss of Vision: Bilateral Hearing Impairment: Denies Cancer: Yes Breast Psychosocial: Yes Depression Integumentary: No Blood Disorders: No Adverse Reaction/Blood Tranf: No (N/A) Family Medical History Reviewed Nursing Family Hx Alcoholism 19 FATHER Hypertension 19 FATHER No Pertinent Family Hx Physical Exam Vital Signs Vital Signs - First Documented 05/18/22 05/18/22 09:23 10:20 Temp 36.4 Pulse 95 Resp 19 B/P (MAP) 163/100 (121) Pulse Ox 100 O2 Delivery Room Air Height, Weight, BMI Height: 5'5.00" Weight: 300lbs. 4.0oz. 136.398222uo; 48.00 BMI Method:Stated General Appearance: WD/WN, no apparent distress Nose: normal inspection; No discharge Mouth/Throat: maxillary swelling; No pharynx tenderness, No tongue swollen, No trismus; other (Left upper facial pain near #12 #13. No obvious intraoral abscess with swelling noted to the cheek with redness) Neck: full range of motion, supple Cardiovascular: regular rate, rhythm, no murmur Respiratory: lungs clear, normal breath sounds Neurologic/Psychiatric: alert, oriented x 3 Skin: normal color, warm/dry, other (Erythema as above) Progress/Results/Core Measures Results/Orders My Orders Orders - ALEK ROBLES MD Dexamethasone Injection (Decadron Inje (05/18/22 10:15) Medications Given in ED Current Medications Medications Dose Ordered Sig/Curly Route Start Time Stop Time Status Last Admin Dose Admin Dexamethasone Sodium Phosphate 10 mg ONCE ONCE IM 05/18/22 10:15 05/18/22 10:16 DC 05/18/22 10:16 10 MG Vital Signs/I&O 05/18/22 05/18/22 09:23 10:20 Temp 36.4 36.6 Pulse 95 91 Resp 19 18 B/P (MAP) 163/100 (121) 144/85 Pulse Ox 100 O2 Delivery Room Air Room Air Blood Pressure Mean: 121 Progress Progress Note : Progress Note Seen and evaluated. We will give Decadron 10 mg IM and initiate outpatient antibiotic therapy as well as pain medicine therapy. Patient drove here. I did discuss instructions. Discharged home with return precautions. Patient verbalized understanding of instructions and agreement with plan. Departure Impression Primary Impression: Dental caries Disposition: HOME, SELF-CARE Condition: Stable Departure-Patient Inst. Decision time for Depature: 10:10 Referrals: [facility] (PCP/Family) Primary Care Physician Patient Instructions: Tooth Abscess (DC) Add. Discharge Instructions: All discharge instructions reviewed with patient and/or family. Voiced understanding. Take medications as directed. You may take Tylenol/acetaminophen 1000 mg every 6-8 hours as needed for pain if you are not taking the prescribed pain medicine. Do not take both at the same time as they both have acetaminophen in them. You may also take ibuprofen 600 mg every 8 hours as needed for pain. It is very important that you follow-up with a dentist as soon as possible. Return for worse pain, swelling, weakness, breathing problems, swallowing problems or other concerns as needed. Scripts Hydrocodone Bit/Acetaminophen (HYDROcodone/APAP 5 MG/325 MG TAB) 1 Tab Tab 1 TAB PO Q6H for Pain, #10 TAB 0 Refills Prov: LAEK ROBLES MD 05/18/22 Amoxicillin/Potassium Clav (Amox Tr-K Clv 875-125 mg Tab) 875 Mg-125 Mg Tablet 1 EACH PO BID for 7 Days, #14 TAB 0 Refills Prov: ALEK ROBLES MD 05/18/22 Images Mouth/Nose 1 - Swelling, Tenderness ALEK ROBLES MD May 18, 2022 10:12
[2022-05-18 10:20] VITALS: BP 144/85
== END 2022-05-18 10:20 | disposition home or self-care (01) ==
LOC: EDUNIT# 08:52 → ER 08:53
DX: K02.9 Dental caries, unspecified (principal); Z91.040 Latex allergy status
CPT/HCPCS: 99284

== ENCOUNTER 2023-01-07 18:28 | Emergency (ER) | payer BC ==
[~2023-01-07] VITALS: Ht 170 cm; Wt 132.0 kg
[~2023-01-07 18:28] MED LIST changes: +AMOX1TAB12 PO
[2023-01-07 18:52] LABS: BASOPHILS # (AUTO) 0.1 10^3/uL (0.0-0.1); BASOPHILS % (AUTO) 1 % (0-10); EOSINOPHILS # (AUTO) 0.2 10^3/uL (0.0-0.3); EOSINOPHILS % (AUTO) 2 % (0-10); HEMATOCRIT 43 % (35-52); HEMOGLOBIN 14.2 g/dL (11.5-16.0); LYMPHOCYTES # (AUTO) 3.5 10^3/uL (1.0-4.0); LYMPHOCYTES % (AUTO) 33 % (12-44); MEAN CORPUSCULAR HEMOGLOBIN 30 pg (25-34); MEAN CORPUSCULAR HGB CONC 33 g/dL (32-36); MEAN CORPUSCULAR VOLUME 90 fL (80-99); MEAN PLATELET VOLUME 10.8 fL (9.0-12.2); MONOCYTES # (AUTO) 0.9 10^3/uL (0.0-1.0); MONOCYTES % (AUTO) 8 % (0-12); NEUTROPHILS # (AUTO) 5.8 10^3/uL (1.8-7.8); NEUTROPHILS % (AUTO) 56 % (42-75); PLATELET COUNT 254 10^3/uL (130-400); WHITE BLOOD COUNT 10.5 10^3/uL (4.3-11.0)
--- NOTE | 2023-01-07 18:55 | ED Chest Pain ---
General Chief Complaint: Chest Pain Stated Complaint: CHEST PAIN Nursing Triage Note: SENT OVER FROM [facility] WITH CHEST PAIN THAT STARTED YESTERDAY. Source: patient Exam Limitations: no limitations History of Present Illness Date Seen by Provider: Jan 07, 2023 Time Seen by Provider: 18:41 Initial Comments 47-year-old female presents the ER with complaint of left-sided chest pain starting yesterday. She describes the pain as a tightness. She states the pain has been constant since it started last night, but it has improved. Reports mild shortness of breath. She is also reports abdominal cramping, nausea, vomiting, diarrhea which was going on all night last night. She reports today she is generally not felt well, she had some crackers this afternoon, and vomited after this. She has not tried to eat anything else. Denies fevers and dysuria. Allergies and Home Medications Allergies Coded Allergies: latex (Verified Allergy, Intermediate, HIVES, SWELLING, 03/22/16) Patient Home Medication List Home Medication List Reviewed: Yes Amoxicillin/Potassium Clav (Amox Tr-K Clv 875-125 mg Tab) 875 Mg-125 Mg Tablet, 1 EACH PO BID Prescribed by: ALEK ROBLES on 05/18/22 1012 Docusate Sodium (Docusate Sodium) 100 Mg Capsule, 100 MG PO BID PRN for CONSTIPATION Prescribed by: EDWIGE ROJO on 03/29/16 0842 Hydrocodone Bit/Acetaminophen (Lortab 5 Mg Tablet) 1 Each Tablet, 1-2 TAB PO Q4H PRN for PAIN Prescribed by: EDWIGE ROJO on 03/29/16 0842 Hydrocodone Bit/Acetaminophen (HYDROcodone/APAP 5 MG/325 MG TAB) 1 Tab Tab, 1 TAB PO Q6H Prescribed by: ALEK ROBLES on 05/18/22 1012 Ibuprofen (Ibuprofen) 600 Mg Tablet, 600 MG PO Q6H Prescribed by: EDWIGE ROJO on 03/29/16 0842 Labetalol HCl (Labetalol HCl) 200 Mg Tablet, 200 MG PO BID Prescribed by: EDWIGE ROJO on 03/30/16 0857 Meclizine HCl (Meclizine HCl) 12.5 Mg Tablet, 12.5 MG PO PRN, (Reported) Entered as Reported by: ALTA JUDD on 03/22/16 1113 Meloxicam (Meloxicam) 7.5 Mg Tablet, 7.5 MG PO DAILY Prescribed by: GORDON SAUCEDO on 04/06/19 1439 Pediatric Multivit Comb No.76 (Flintstones Complete) 1 Each Tab.chew, 1 EACH PO DAILY, (Reported) Entered as Reported by: ALTA JUDD on 03/22/16 1113 Past Ifonhuo-Gifhsk-Znavyo Hx Patient Social History Tobacco Use?: Yes Smoking Status: Former Smoker Substance use?: No Alcohol Use?: No Immunizations Up To Date Tetanus Booster (TDap): Less than 5yrs Seasonal Allergies Seasonal Allergies: Yes Past Medical History Surgeries: Yes (breast surgery, lumpectomy) Section Respiratory: No Cardiac: Yes (GESTATIONAL HPT) Hypertension Neurological: No Reproductive Disorders: No Female Reproductive Disorders: Denies Sexually Transmitted Disease: No HIV/AIDS: No Kidney Stones Gastrointestinal: Yes Gastroesophageal Reflux Musculoskeletal: No Endocrine: No Loss of Vision: Bilateral Hearing Impairment: Denies Cancer: Yes Breast Psychosocial: Yes Depression Integumentary: No Blood Disorders: No Adverse Reaction/Blood Tranf: No (N/A) Family Medical History Alcoholism 19 FATHER Hypertension 19 FATHER No Pertinent Family Hx Physical Exam Vital Signs Vital Signs - First Documented 01/07/23 18:31 Temp 36.9 Pulse 83 Resp 16 B/P (MAP) 168/106 (126) Pulse Ox 97 O2 Delivery Room Air Capillary Refill : Less Than 3 Seconds Height, Weight, BMI Height: 5'5.00" Weight: 300lbs. 4.0oz. 136.330279ac; 45.00 BMI Method:Stated Progress/Results/Core Measures Results/Orders Lab Results Laboratory Tests Test 01/07/23 18:40 Range/Units White Blood Count 10.5 4.3-11.0 10^3/uL Red Blood Count 4.79 3.80-5.11 10^6/uL Hemoglobin 14.2 11.5-16.0 g/dL Hematocrit 43 35-52 % Mean Corpuscular Volume 90 80-99 fL Mean Corpuscular Hemoglobin 30 25-34 pg Mean Corpuscular Hemoglobin Concent 33 32-36 g/dL Red Cell Distribution Width 14.8 H 10.0-14.5 % Platelet Count 254 130-400 10^3/uL Mean Platelet Volume 10.8 9.0-12.2 fL Immature Granulocyte % (Auto) 0 % Neutrophils (%) (Auto) 56 42-75 % Lymphocytes (%) (Auto) 33 12-44 % Monocytes (%) (Auto) 8 0-12 % Eosinophils (%) (Auto) 2 0-10 % Basophils (%) (Auto) 1 0-10 % Neutrophils # (Auto) 5.8 1.8-7.8 10^3/uL Lymphocytes # (Auto) 3.5 1.0-4.0 10^3/uL Monocytes # (Auto) 0.9 0.0-1.0 10^3/uL Eosinophils # (Auto) 0.2 0.0-0.3 10^3/uL Basophils # (Auto) 0.1 0.0-0.1 10^3/uL Immature Granulocyte # (Auto) 0.0 0.0-0.1 10^3/uL Prothrombin Time 12.9 12.2-14.7 SEC INR Comment 1.0 0.8-1.4 Activated Partial Thromboplast Time 30 24-35 SEC Sodium Level 138 135-145 MMOL/L Potassium Level 3.7 3.6-5.0 MMOL/L Chloride Level 109 H 98-107 MMOL/L Carbon Dioxide Level 20 L 21-32 MMOL/L Anion Gap 9 5-14 MMOL/L Blood Urea Nitrogen 9 7-18 MG/DL Creatinine 0.79 0.60-1.30 MG/DL Estimat Glomerular Filtration Rate 94 BUN/Creatinine Ratio 11 Glucose Level 84 70-105 MG/DL Calcium Level 8.8 8.5-10.1 MG/DL Corrected Calcium 8.8 8.5-10.1 MG/DL Magnesium Level 2.3 1.6-2.4 MG/DL Total Bilirubin 0.4 0.1-1.0 MG/DL Aspartate Amino Transf (AST/SGOT) 18 5-34 U/L Alanine Aminotransferase (ALT/SGPT) 17 0-55 U/L Alkaline Phosphatase 88 40-136 U/L Troponin I < 0.028 <0.028 NG/ML Total Protein 7.7 6.4-8.2 GM/DL Albumin 4.0 3.2-4.5 GM/DL My Orders Orders - EFREN NI CARRY OUT CLERK Cbc With Automated Diff (01/07/23 18:41) Magnesium (01/07/23 18:41) Chest 1 View, Ap/Pa Only (01/07/23 18:41) Comprehensive Metabolic Panel (01/07/23 18:41) Protime With Inr (01/07/23 18:41) Partial Thromboplastin Time (01/07/23 18:41) Monitor-Rhythm Ecg Trace Only (01/07/23 18:41) Ed Iv/Invasive Line Start (01/07/23 18:41) Troponin I [place] (01/07/23 18:41) Vital Signs/I&O 01/07/23 18:31 Temp 36.9 Pulse 83 Resp 16 B/P (MAP) 168/106 (126) Pulse Ox 97 O2 Delivery Room Air Blood Pressure Mean: 126 Departure Impression Primary Impression: Chest pain Qualified Codes: R07.9 - Chest pain, unspecified Additional Impression: Gastroenteritis Disposition: 01 HOME, SELF-CARE Condition: Stable Departure-Patient Inst. Decision time for Depature: 19:46 Referrals: [facility] (PCP/Family) Primary Care Physician Patient Instructions: Chest Pain That Is Not Caused by the Heart (DC) Add. Discharge Instructions: Make sure you are drinking plenty of water. Stay away from caffeinated, high sugar beverages. Follow-up with your primary care provider. Return for any new, concerning, or worsening symptoms. All discharge instructions reviewed with patient and/or family. Voiced understanding. EFREN NI APRN Jan 07, 2023 18:54
[2023-01-07 19:05] LABS: CHLORIDE 109 MMOL/L (98-107); POTASSIUM 3.7 MMOL/L (3.6-5.0); SODIUM 138 MMOL/L (135-145)
[2023-01-07 19:07] LABS: CALCIUM 8.8 MG/DL (8.5-10.1)
[2023-01-07 19:08] LABS: GLUCOSE 84 MG/DL (70-105); TOTAL PROTEIN 7.7 GM/DL (6.4-8.2)
[2023-01-07 19:09] LABS: BILIRUBIN,TOTAL 0.4 MG/DL (0.1-1.0); CARBON DIOXIDE 20 MMOL/L (21-32)
[2023-01-07 19:11] LABS: ALKALINE PHOSPHATASE 88 U/L (40-136); CREATININE SERUM 0.79 MG/DL (0.60-1.30); GFR ESTIMATED 94
[2023-01-07 19:12] LABS: BUN/CREATININE RATIO 11
[2023-01-07 19:14] LABS: ALANINE AMINOTRANSFERASE 17 U/L (0-55); MAGNESIUM 2.3 MG/DL (1.6-2.4)
[2023-01-07 19:15] LABS: PROTHROMBIN TIME PATIENT 12.9 SEC (12.2-14.7)
--- NOTE | 2023-01-07 19:17 | Diagnostic Imaging Report ---
INDICATION: Chest pain. Time of Exam: 7:14 PM No prior studies are available for comparison. FINDINGS: The heart size is normal. The pulmonary vascularity is unremarkable. The lungs are clear. No infiltrate, effusion or pneumothorax is detected. IMPRESSION: No acute cardiopulmonary process is detected. Dictated by: Dictated on workstation # [id number]
[2023-01-07 20:04] VITALS: BP 162/106
== END 2023-01-07 20:07 | disposition home or self-care (01) ==
LOC: EDUNIT# 18:28 → ER 18:30
DX: K52.9 Noninfective gastroenteritis and colitis, unspecified (principal); R07.89 Other chest pain; Z87.891 Personal history of nicotine dependence; Z91.040 Latex allergy status
CPT/HCPCS: 36415; 71045; 80053; 83735; 84484; 85025; 85610; 85730; 93005; 93041